=== PATIENT | male | born 1985 | race Caucasian/White ===

== ENCOUNTER 2018-04-30 20:15 | Emergency (ER) | payer OTHER ==
[2018-04-30 20:21] VITALS: BP 136/79
--- NOTE | 2018-04-30 22:33 | ED SKIN/ALLERGY COMPLAINT ---
History of Present Illness General Chief Complaint: General Adult Stated Complaint: PT HAS HIVES AND VOMITING Source: patient Exam Limitations: no limitations Vital Signs & Intake/Output Vital Signs & Intake/Output Vital Signs Date Time Temp Pulse Resp B/P B/P Pulse O2 O2 Flow FiO2 Mean Ox Delivery Rate 04/308 Room Air 04/30 2021 96.8 89 18 136/79 99 Room Air Allergies Coded Allergies: No Known Allergies (04/30/18) Reconcile Medications Prednisone 10 MG TABLET 1 DOSE PO ONCE DAILY ALLERGIC REACTION 5 TABS X 3 DAYS THEN 4 TABS X 3 DAYS 3 TABS X 3 DAYS 2 TABS X 3 DAYS 1 TAB X3 DAYS Triage Note: PT TO TRIAGE WITH HIVES ON ARMS AND 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 DENIES ALLERGIES TO NUTS, BUT DID HAVE A NEW WALNUT BAR TODAY. DENIES ANY NEW SOAPS OR DETERGENTS. DENIES THROAT SWELLING, IRITATION. LUNGS CTA. SATTING 99% ON RA. SPEAKING IN CLEAR SENTENCES. Triage Nurses Notes Reviewed? yes Onset: Abrupt Duration: day(s): (1), better, changing over time, continues in ED Timing: single episode today Severity: mild, moderate Location: generalized Possible Factors: exposure to allergen No Modifying Factors: none Associated Symptoms: rash HPI: 32 year old male with no pmh presents for eval of allergic reaction. pt reports that about 1 hour after eating a walnut bar he began to devolp hives nausea and vomiting. the hives are located diffusly on his body. the n/v was brief lasting about 1 hour. no swelling of lips, tongue or throat. no sob or difficulty swallowing. he has no previous hx of allergic reactions never used an epi pen. he is unsure if he has had walnuts before. he feels symptoms have improved sicne first starting. no other new exposures.no abdominal pain or chest pain. (Pranav Hedrick) Past History Travel History Traveled to [place] past 21 day No Medical History Any Pertinent Medical History? 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 No (Pranav Hedrick) Review of Systems Review of Systems Constitutional: Reports: no symptoms. EENTM: Reports: no symptoms. Respiratory: Reports: no symptoms. Cardiovascular: Reports: no symptoms. GI: Reports: see HPI, nausea, vomiting. Genitourinary: Reports: no symptoms. Musculoskeletal: Reports: no symptoms. Skin: Reports: see HPI, rash. Neurological/Psychological: Reports: no symptoms. Hematologic/Endocrine: Reports: no symptoms. Immunologic/Allergic: Reports: no symptoms. All Other Systems: Reviewed and Negative (Pranav Hedrick) Physical Exam Physical Exam General Appearance: well developed/nourished, no apparent distress, alert, awake Head: atraumatic, normal appearance Eyes: Bilateral: normal appearance, PERRL, EOMI. Ears, Nose, Throat: normal pharynx, normal ENT inspection, hearing grossly normal, no swelling of lips tongue or throat. Neck: normal inspection, supple, full range of motion, no stridor Respiratory: normal breath sounds, chest non-tender, no respiratory distress, lungs clear Cardiovascular: regular rate/rhythm, normal peripheral pulses Peripheral Pulses: 2+ radial (R), 2+ radial (L) Gastrointestinal: normal bowel sounds, soft, non-tender, no organomegaly Back: normal inspection, normal range of motion, no vertebral tenderness Extremities: normal inspection, normal range of motion, no edema Neurologic/Psych: no motor/sensory deficits, awake, alert, oriented x 3, normal gait Skin: intact, normal color, warm/dry Skin Problem Location: generalized Skin Problem Character: erythema, urticarial, there are multiple uticarial erythematous lesions located difficusly on the body. no underlying erythema, swelling or discharge Lymphatic: no anterior cervical chyna (Pranav Hedrick) Progress Differential Diagnosis: abscess/cellulitis, allergic reaction, anaphylaxis, angioedema, contact dermatitis, drug reaction, erythema multiforme, urticaria Plan of Care: Current Medications Sig/Gerson Start time Last Medication Dose Stop Time Status Admin Diphenhydramine HCl 50 MG ONCE ONE 04/30 2245 AC (Benadryl) 04/30 2246 Famotidine 20 MG ONCE ONE 04/30 2245 AC (Pepcid) 04/30 2246 Prednisone 60 MG ONCE ONE 04/30 2245 AC 04/30 2246 pt seen and evaled. he appears to have had an allergic reaction possibly to walnuts. no airway involvement. he feels symptoms are gettying better. pt was medicated here with benadryl, prednisone and pepcid here. he was monitored and symptosm continue to improve. discharegd on a prednisoe taper. continue benadryl discussed return precautions ind etail. follow up with pcp for allergyu testing. avoid nuts. return with any concerns. pt agrees with plan (Pranav Hedrick) Departure Departure Disposition: HOME OR SELF CARE Condition: Stable Clinical Impression Primary Impression: Allergic reaction Qualifiers: Encounter type: initial encounter Qualified Code: T78.40XA - Allergy, unspecified, initial encounter Referrals: Gordy Meza MD (PCP/Family) Additional Instructions: Take prednisone as directed for the full course. Continue to use Benadryl 50 mg every 4-6 hours as needed for itching. Pepcid can also be used every 12 hours as needed. Make a follow-up with YOUr primary care doctor for allergy testing. If you have difficulty breathing difficulty swallowing or any other concerns return immediately. Departure Forms: Customer Survey General Discharge Information Prescriptions: Current Visit Scripts Prednisone 1 DOSE PO ONCE DAILY #1 DP 5 TABS X 3 DAYS THEN 4 TABS X 3 DAYS 3 TABS X 3 DAYS 2 TABS X 3 DAYS 1 TAB X3 DAYS (Pranav Hedrick) PA/SALES WAREHOUSE DRIVER Co-Sign Statement Statement: ED Attending supervision documentation- [] I saw and evaluated the patient. I have also reviewed all the pertinent lab results and diagnostic results. I agree with the findings and the plan of care as documented in the PA's/SALES WAREHOUSE DRIVER's documentation. [X] I have reviewed the ED Record and agree with the PA's/SALES WAREHOUSE DRIVER's documentation. [] Additions or exceptions (if any) to the PAs/SALES WAREHOUSE DRIVER's note and plan are summarized below: [] (Yuliya VASQUEZ,Jaya Arguelles)
[2018-04-30] MEDS ORDERED: PREDNISONE10 M2 PO (22:35)
== END 2018-04-30 22:55 ==
LOC: ERH 20:15
DX: T78.1XXA Other adverse food reactions, not elsewhere classified, initial encounter (principal); L50.0 Allergic urticaria